=== PATIENT | male | born 1985 | race African-American/Black ===

== ENCOUNTER 2019-10-27 01:33 | Emergency (ER) | payer OTHER ==
[~2019-10-27] VITALS: Ht 177.8 cm; Wt 95.5 kg
[2019-10-27 01:34] VITALS: BP 156/90
[2019-10-27] MEDS ORDERED: KETOROLAC TROMETHAMINE 10 MG TAB PO ONE (03:45)
[2019-10-27] MEDS ORDERED: KETO10TAB PO (03:50)
--- NOTE | 2019-10-27 08:24 | REP ---
Clinical: Trauma. Fall . Technique: Internal rotation, external rotation, and Y view right shoulder . Findings: No acute fracture or dislocation. The acromioclavicular and glenohumeral joints are intact. No periarticular calcifications or degenerative changes are appreciated. Sub acromial space is normal. Surrounding soft tissues are unremarkable. Impression: Normal right shoulder radiographs. Electronically Signed by Farooq Ca MD 10/27/2019 08:16 A
== END 2019-10-27 05:08 | disposition home or self-care (01) ==
LOC: M ED 01:33
DX: S46.911A Strain of unspecified muscle, fascia and tendon at shoulder and upper arm level, right arm, initial encounter (principal); W11.XXXA Fall on and from ladder, initial encounter; Y92.9 Unspecified place or not applicable